=== PATIENT | male | born 1995 | race Caucasian/White ===

== ENCOUNTER 2020-03-06 16:10 | Inpatient (IN) ==
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
[2020-03-06 17:15] LABS: Basophils # (auto) 0.02 K/uL (0-0.2); Basophils % (auto) 0.3 %; Eosinophils # (auto) 0.08 K/uL (0-0.5); Eosinophils % (auto) 1.1 %; Hematocrit (blood only) 41.3 % (42-52); Hemoglobin 14.5 g/dL (14.0-18.0); Immature Granulocytes # (auto) 0.01 K/uL (0.00-0.02); Immature Granulocytes % (auto) 0.1 %; Lymphocytes # (auto) 1.63 K/uL (1.2-3.4); Lymphocytes % (auto) 22.9 %; Mean Corpuscular Hemoglobin 30.3 pg (25-34); Mean Corpuscular Hgb Conc 35.1 g/dL (32-36); Mean Corpuscular Volume 86.4 fL (80-100); Mean Platelet Volume 10.4 fL (7.4-10.4); Monocytes # (auto) 0.45 K/uL (0.11-0.59); Monocytes % (auto) 6.3 %; Neutrophils # (auto) 4.93 K/uL (1.4-6.5); Neutrophils % (auto) 69.3 %; Platelet Count 399 K/uL (130-400); RDW Coefficient of Variation 13.6 % (11.5-14.5); RDW Standard Deviation 43.5 fL (36.4-46.3); Red Blood Count 4.78 M/uL (4.7-6.1); White Blood Count 7.12 K/uL (4.8-10.8)
[2020-03-06 17:39] LABS: Alanine Aminotransferase 18 U/L (12-78); Albumin Level 4.6 gm/dl (3.4-5.0); Aspartate Aminotransferase 18 U/L (15-37); BUN Creatinine Ratio 9.9 (10-20); Blood Urea Nitrogen 11 mg/dl (7-18); Calcium 9.3 mg/dl (8.5-10.1); Carbon Dioxide 26 mmol/L (21-32); Chloride 110 mmol/L (98-107); Est GFR (African American) 101.9; Glucose 98 mg/dl (70-99); Potassium 3.5 mmol/L (3.5-5.1); Sodium 142 mmol/L (136-145)
[2020-03-06 17:47] LABS: Acetaminophen < 2 ug/ml (10-30); Salicylate < 1.7 mg/dl (2.8-20)
[2020-03-06 17:50] LABS: Albumin Globulin Ratio 1.4 (0.9-2); Alkaline Phosphatase 63 U/L (45-117); Globulin 3.3 gm/dl (2.5-4.0); Total Protein 7.9 gm/dl (6.4-8.2)
[2020-03-06 18:58] LABS: Appearance Urine Clear (Clear); Bilirubin Urine Negative (Negative); Blood Urine Negative (Negative); Color Urine Yellow; Glucose Urine UA Negative (Negative); Ketones Urine 1+ (Negative); Leukocyte Esterase Urine Negative (Negative); Nitrite Urine Negative (Negative); Protein Urine Negative (Negative); Specific Gravity Urine 1.022 (1.000-1.030); Urobilinogen Urine Negative (Negative); pH Urine 5.5 (4.5-7.5)
[2020-03-06 19:07] LABS: Amphetamines+Metham, Urine Neg (Neg); Barbiturates, Urine Neg (Neg); Benzodiazepine, Urine Neg (Neg); Cocaine, Urine Neg (Neg); MDMA (Ecstacy), Urine Neg (Neg); Methadone, Urine Neg (Neg); Opiate, Urine Neg (Neg); Phencyclidine, Urine Neg (Neg)
[2020-03-06] MEDS ORDERED: LORazepam 1 MG TAB SL STA (21:31)
[2020-03-06] MEDS ORDERED: haloperidoL 5 MG TAB PO STA (22:51)
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
[2020-03-06 23:17] VITALS: O2SAT 99
[2020-03-07] MEDS ORDERED: LORazepam 1 MG TAB SL STA (00:49)
[2020-03-07] MEDS ORDERED: MAGNESIUM HYDROXIDE SUSP 30 ML UDC PO PRN (00:50)
[2020-03-07] MEDS ORDERED: SODIUM CHLORIDE 0.65% NA SOLN 45 ML (OCEAN) PRN (00:50)
[2020-03-07] MEDS ORDERED: BISMUTH SUBSALICYLATE LIQD 236 ML PO PRN (00:50)
[2020-03-07] MEDS ORDERED: ACETAMINOPHEN 325 MG TAB PO PRN (00:50)
[2020-03-07] MEDS ORDERED: ALUMINUM/MAGNESIUM SUSP 30 ML UDC PO PRN (00:50)
[2020-03-07] MEDS ORDERED: cloNIDine HCL 0.1 MG TAB PO ONE (11:38)
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
[2020-03-07] MEDS ORDERED: PALIPERIDONE 3 MG TABCR PO ONE (14:00)
[2020-03-07] MEDS: lamoTRIgine 25 MG TAB PO SCH (14:12)
[2020-03-07] MEDS ORDERED: DOXEPIN HCL 25 MG CAPSULE PO PRN (21:00)
[2020-03-08] MEDS: haloperidoL 5 MG TAB PO PRN (06:55)
[2020-03-08] MEDS: lamoTRIgine 25 MG TAB PO SCH (07:37)
[2020-03-08] MEDS: LORazepam 1 MG TAB PO PRN (07:50)
[2020-03-08] MEDS ORDERED: PALIPERIDONE 3 MG TABCR PO SCH (09:00)
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
[2020-03-08] MEDS: LORazepam 1 MG TAB PO SCH (20:58)
[2020-03-08] MEDS: haloperidoL 5 MG TAB PO SCH (21:01)
[2020-03-09 08:29] LABS: Marijuana Quant, GCMS Urine 3200 ng/mL (<5)
[2020-03-09] MEDS ORDERED: PALIPERIDONE 3 MG TABCR PO SCH (09:00)
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
[2020-03-09] MEDS: PALIPERIDONE 3 MG TABCR PO SCH (10:54)
[2020-03-09] MEDS: lamoTRIgine 25 MG TAB PO SCH (10:54)
[2020-03-09] MEDS: LORazepam 1 MG TAB PO SCH ×2 (11:02→21:09)
[2020-03-09] MEDS: LORazepam 1 MG TAB PO PRN (16:53)
[2020-03-09] MEDS: haloperidoL 5 MG TAB PO SCH (21:09)
[2020-03-10] MEDS: lamoTRIgine 25 MG TAB PO SCH (08:41)
[2020-03-10] MEDS ORDERED: LORazepam 2 MG/ML VIAL (IM USE) IM PRN (10:12)
[2020-03-10] MEDS ORDERED: HALOPERIDOL LACTATE 5 MG/ML 1 ML VIAL IM PRN (10:12)
[2020-03-10] MEDS: LORazepam 1 MG TAB PO PRN (10:15)
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
[2020-03-10] MEDS: PALIPERIDONE 3 MG TABCR PO SCH (14:27)
--- NOTE | 2020-03-10 14:48 | XRay Report ---
XR hand RT min 3V routine CLINICAL HISTORY: needs portable, 1 view if needed, r/o boxer fx. Right hand pain. COMPARISON STUDY: None. FINDINGS: Mild soft tissue swelling at the dorsum of the MCP joints. No fracture or dislocation withi n the right hand. Specifically, the metacarpals appear intact. No radiopaque foreign bodies. IMPRESSION: No fracture or dislocation within the right hand. ACT 112: Negative or not required by law. Electronically signed by: Cornel Quintana M.D. 03/10/2020 2:47 PM
[2020-03-10] MEDS: LORazepam 1 MG TAB PO SCH (21:19)
[2020-03-10] MEDS: haloperidoL 5 MG TAB PO SCH (21:19)
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
[2020-03-11] MEDS: PALIPERIDONE 3 MG TABCR PO SCH (11:26)
[2020-03-11] MEDS: lamoTRIgine 25 MG TAB PO SCH (11:26)
[2020-03-11] MEDS ORDERED: HALOPERIDOL LACTATE 5 MG/ML 1 ML VIAL IM PRN (11:56)
[2020-03-11] MEDS: LORazepam 1 MG TAB PO PRN (13:45)
[2020-03-11] MEDS: haloperidoL 5 MG TAB PO PRN (13:45)
[2020-03-11] MEDS: LORazepam 1 MG TAB PO SCH (21:06)
[2020-03-11] MEDS: haloperidoL 5 MG TAB PO SCH (21:07)
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
[2020-03-12 08:59] LABS: Glucose Fasting 91 mg/dl (70-99)
[2020-03-12 09:07] LABS: Chol HDL Ratio 2; Cholesterol 93 mg/dl (0-200); HDL Cholesterol 41 mg/dl; LDL Cholesterol Calculated 42 mg/dl; Triglycerides 50 mg/dl (0-150); VLDL Cholesterol 10 mg/dl
[2020-03-12] MEDS ORDERED: haloperidoL 5 MG TAB PO PRN (12:07)
[2020-03-12] MEDS: lamoTRIgine 25 MG TAB PO SCH (12:36)
[2020-03-12] MEDS: PALIPERIDONE 3 MG TABCR PO SCH (13:10)
[2020-03-12] MEDS: hydrOXYzine HCl 25 MG TAB PO PRN (17:45)
[2020-03-12] MEDS: haloperidoL 5 MG TAB PO PRN (17:45)
[2020-03-12] MEDS: LORazepam 1 MG TAB PO SCH (20:44)
--- NOTE | 2020-03-13 10:45 | Psychiatric Progress Note ---
Date of Service March 13, 2020 Impression / Recommendations Impression This 24-year-old man with a history of schizoaffective disorder, bipolar type, cannabis abuse, and intermittent explosive disorder who presented with delusions that he was being drugged and raped in his sleep or sexually harassed. Available records indicate that the patient may cycle rapidly between angeli (with grandiose beliefs, flight of ideas, and expansive mood) and depression with feelings of hopelessness, helplessness, worthlessness, insomnia, crying spells, anhedonia, anxious distress, and depressed mood. Little is known about his past psychiatric history, and he is reporting significant substance use triggering current psychotic symptoms. He and his girlfriend report he has been using large quantities of "high THC" marijuana. Nonadherence with treatment is also an issue in this case. A recent outpatient progress note indicated that he was refusing psychiatric medications, other than lamotrigine, which was prescribed 25 mg a day. He was started on Invega with a plan to transition to an WARD. Since admission he was taking PO meds as prescribed but became acutely agitated following 303 commitment hearing breaking a window (charges to be filed), now has meds over objection and Haldol has been added. He is poorly engaged with treatment, lacks insight, and continues to demonstrate paranoia and poor behavioral control, despite numerous attempts to convince staff otherwise. He is irritable and demanding in conversation, and has yet to be able to articulate a clear or appropriate discharge plan. (1) Psychosis: 03/07/20 -The patient has been admitted to the [facility] inpatient [facility] unit where he will be actively monitored and treated. When under better behavioral control he will be encouraged to participate in group and recreational therapies. We will also recommend family involvement with his girlfriend. -The patient's dose of lamotrigine most of been increased from 25 mg a day to 50 mg a day by his outpatient provider, but the patient had not yet started the higher dose. We will increase the patient's dose of lamotrigine to 50 mg daily. -The patient has been offered and has agreed to take paliperidone (Invega) immediate release by mouth. We will start at 3 mg a day and titrate as indicated and tolerated. Given the adherence issue, we will also talked the patient about the option of converting to Invega Sustenna. -Patient's report is that he had carried a diagnosis of ADHD in the past. It is not entirely clear if the symptoms that he describes such as difficulty concentrating, focusing, and avoiding distraction are a feature of his bipolar disorder symptoms (schizoaffective disorder bipolar type) or if this is an independent diagnosis. Given his history of substance misuse, as well as his history of difficulty regulating his mood, we would be reluctant to prescribe a stimulant medication such as amphetamine salts or methylphenidate. He notes that he has not taken Strattera, and this might be an option once he has stabilized psychiatrically if the above referenced symptoms persist. -Within the context of the patient's reported depression, he describes significant anxious distress. He appears to be seeking a benzodiazepine, but accepted my explanation that we would not suggest regular use of a benzodiazepine in his case, nor would we be likely to feel comfortable disch arging him on a benzodiazepine, given his history of heavy use of abusable drugs, such as marijuana. Reviewed 03/08/20. Will add standing dose of Haldol at hs and Ativan BID until Invega more therapeutic. Agree that would benefit from WARD. 03/09/20--d/c am Ativan, shift Invega to lunch time. Still restless at night but can likely d/c Haldol soon in favor of titration of Invega if needed. 03/10/20--303 commitment. Note that refusing PO meds for episode of agitation. If continues to refuse PO meds, based on patient's own aggressive and unpredictable behavior due to paranoia due to his bipolar disorder it is my medical opinion that he should receive meds over objection as without mood stabilizing effects of the antipsychotic he remains at significant risk of , serious harm to self or others in the next 30 days. --acute agitation today involving destruction of property. 03/11 -continue paliperidone 6 mg daily, and transition to Invega Sustenna if effective. Continue haloperidol 5 mg at bedtime in the interim for acute symptom control/agitation. Agree with medications over objection, given his history of psychotic disorder, intermittent refusal to take medications, acute agitation which puts both himself and other patients/staff at risk, poor insight and judgment, and the need to adequately control symptoms so that he can participate in treatment and discharge planning. Will order haloperidol IM for refusal of p.o. medications. -Continue use of safe room as patient broke the window in the MITCH room. He indicated that his behavior was justified, as he felt staff lied to him and disrespected him, and was informed of expectations for behavior in the hospital, including that he not threaten or assault staff, or cause property damage, and that if he does, charges may be pressed. -Encourage patient to attend groups and participate in treatment, he indicates he is going to refuse. -He signed a release for his girlfriend today, and we will get collateral information and schedule a family meeting. 03/12 -contacted Rachel Landis at [facility] to coordinate care (left message), have requested records from [facility] and multiple inpatient stays at the [facility], but have not yet received them. Records indicate numerous previous diagnoses, including schizoaffective disorder, bipolar disorder, and intermittent explosive disorder. Differential includes substance-induced psychosis. -Consider a 304 IOC due to nonadherence with treatment and risk of harm to both himself and others of untreated. -Continue paliperidone and increase to 9 mg daily, change haloperidol to as needed; would like to transition to an WARD, but would like to establish efficacy first. -FLP and glucose checked for monitoring on an atypical antipsychotic, all values within normal limits. -Coordinate with CYS, given concerns for safety of patient's girlfriend and child, and his assertion that he is returning to live with them at discharge. 03/13 - Continue paliperidone, recently increased to 9mg daily. Exploring efficacy with recommendation to convert to an WARD. - Pt is rather focused on discharge, but is unable to verbalize a clear or consistent plan for housing or aftercare services. Pt is ambivalent about staying with his girlfriend, moving into his own apartment, or living with his mother in [place] - with reports this decision will now be based on a paternity test he is requesting. - Pt states he is no longer delusional and that he should be discharge today - however, he simultaneously is now convinced that his girlfriend is cheating on him and that the baby may not be his - offering no other possible explanation for his girlfriend's behavior. (2) Cannabis abuse with cannabis-induced disorder: 03/12 -cannabis induced psychosis. Both patient and girlfriend report he has been smoking very large amounts of high potency marijuana, and that paranoia has occurred in this context. He does have a previous history of mental health treatment but no details of that are known at this time. We have requested records from the [facility] but have not yet received them. Patient has poor insight, and girlfriend reported he has a medical marijuana card from Dr. Gregory from [facility], so called him to inform him of hospitalization for substance-induced psychosis related to cannabis use. Halluc inogens and centrally acting medications that can cause psychosis or addiction are contraindicated for him. Drug screen + THC, with a level of 3200. (3) Suicidal thoughts: 03/07/20 -The patient makes statements that indicate that he is actively suicidal with suicidal intent, although he also reports that he will not make any self-harm attempts while in the hospital. -He will continue to be monitored closely and placed on suicide precautions. He is also been placed in our close observation room across from the nursing station. -The patient's complaint today is of depression, although the patient's outpatient record suggests possible rapid cycling and so the plan will not be to add an antidepressant medication at this time. Of note is the patient's report that, in the past, he has responded favorably to "Prozac." Reviewed 03/08/20. Not appropriate for antidepressant retrial at this time as could be activating. 03/11 -patient is denying SI. 03/12 -past records indicate he has been activated on antidepressants in the past, so would not recommend a retrial due to the high risk of worsening his symptoms/mood instability. (4) Intermittent explosive disorder: 03/12 - Historical diagnosis from therapist, pt reports h/o violence but is a limited historian, continue to gather information. Girlfriend indicates a history of violence, and states there is a firearm which she plans to remove from the residence prior to discharge. - Have requested records from previous hospitalizations at [place], have not yet received them. - If the atypical antipsychotic does not decrease episodes of agitation/violence, consider trial of Depakote. 03/13 - Pt continues to be irritable and demanding with a significant focus on discharge; however, no continued demonstration of acute agitation. Inventory Assets Strengths: Intelligent. Motivated to treatment. Adherent with outpatient appointments. Supportive girlfriend. Needs: Adherence to antipsychotic medications and mood stabilizers at an adequate dose. Resolution of psychosis. Resolution of disorganized and dangerous behaviors. Resolution of active suicidal thoughts. Risk Factors Assessment Male: Yes : Yes Do You Have Access To A Gun?: Yes (Patient says that his gun is in a locked box. ) Health Problems: No Mental Health Diagnoses: Yes Substance Use Disorders: Yes Previous Attempt: No (This is by the patient's report. Collateral information is required.) Family History of Suicide: No Previous Psychiatric Hospitalization: Yes Hopelessness: Yes Smoker: No Protective Factors Assessment Episcopal Beliefs: No (The patient reports that he is "ethnically Mandaeism," but is not adherent.) : No Responsible for Young Children: No (The patient's girlfriend gave to a son 10 days ago. CYS involved.) Employed: No Stable Relationships: Yes Supportive Family: No Good Rapport with Provider: Yes Absence of Any Risk Factors Above: No Interval History Identifying Information JEWEL LONGORIA is a 24-year-old man who currently lives locally with his girlfriend and 10-day old son. He has a history of schizoaffective disorder, bipolar type. Mr. Longoria was admitted on 03/07/20 00:50 on a 302 involuntary commitment because of grossly disorganized behavior within the context of paranoid delusions, and SI. He is on a 303 as of 03/10/20. Chief Complaint "Listen, I'm not delusional or having any of those thoughts anymore. I'm ready to go, you need to let me go." Review of Systems Notes Constitutional: reports fatigue and feeling restless in this setting Cardiovascular: denied Respiratory: denied Gastrointestinal: denied Neurological: denied Psychiatric: denies symptoms other than stated above Total of at least 10 systems reviewed, pertinent positives as above and in HPI. Sleep Information Total Hours of Sleep: 6 Sleep Comments: pt on dq-15 minute checks Meal Information Percent Meal Consumed - Breakfast: 0 Percent Meal Consumed - Lunch: 10 Percent Meal Consumed - Dinner: 100 Nutrition Comment: Documented from meal record Subjective Subjective Patient was seen & assessed and interval progress reviewed with nursing and social work. Staff report the patient had been somewhat irritable throughout the day yesterday. He had been reporting resolution of delusions, but observations from and conversations with staff suggest continued paranoia and delusional thought content. Concerns regarding patient's behavior, especially with a at home, were expressed to CYS. Pt was seen today to assess progress since admission. Pt reports "Listen, I'm not delusional or arteaga ving any of those thoughts anymore. I'm ready to go, you need to let me go." Pt states "I'm not having those f*cking delusions that I'm being f*cking raped or anything like that." Pt states "but I know my girlfriend is f*cking cheating on me." Pt provides a very disorganized explanation of the "blue wall" in a SnapChat his girlfriend received matches the blue wall in our friends' house. He states he knows she was texting this individual in the delivery room and states he is now not sure that the is even his. Pt was asked if there was any other explanation for these behaviors, and denied there was any other excuse. Pt continued with this conversation and reports that he is convinced that his girlfriend knew he was catching onto their affair and that she has been "gaslighting me" and made up lies to get me to the hospital and out of the way. Pt states he is not convinced that the baby is his and he is now going to demand a paternity test. Pt reports numerous, loosely developed discharge plans. He discusses living with his mother in [place], getting an apartment with his SSI, or staying with his girlfriend. He seems ambivalent about need for aftercare services, saying "if I miss therapy appointments who cares? I don't." Pt then becomes rather demanding "you guys need to start calling for housing, set me up with something, it's not that hard. I need you to think about getting me out of here in a few days, not a few weeks." Pt was informed that he will be meeting with a social sciences department chair to discuss this further, but was strongly encouraged to begin making these phone calls in the meantime if he is motivated for discharge. Pt did call his mother between our two conversations today and stated she is not willing to have him stay with her. Pt then states "I'll talk to however may people you need me to, I'll go through endless interrogations, but you need to let me out - like tomorrow." Pt was encouraged to focus on treatment goals and discharge planning - encouraged to make phone calls to determine his housing options. Pt continued to be irritable and demanding, but did respond to attempts to redirect him toward discharge goals and was later observed to be making phone calls. Physical Exam Psychiatric Orientation: alert, oriented x 3 and + guarded (uncooperative, demanding, argumentative at times) Apperance: appropriately dressed (casually, in jeans and a sweatshirt) and + disheveled (poorly groomed) Curly hair is unclean, messy, standing on end in places. Eye Contact: + fair eye contact (eyes darting around room at times, distracted) Motor Behavior: steady gait and station and + psychomotor agitation (restless, distracted) Speech: normal rate/rhythm/volume of speech Affect: + anxious affect and + irritable affect Mood: + irritable mood Thought Process: + circumstantial thought process and + perseveration; + thought process not linear or logical Thought Content: + preoccupation (very focused on discharge), + paranoid and + delusions Suicidal Thoughts: denies suicidal thoughts Homicidal Thoughts: denies homicidal thoughts Hallucinations: no auditory hallucinations and no visual hallucinations Cognition: language grossly intact; + attention not intact (distracted, poor attention) Insight: + impaired insight Judgement: + impaired judgement Vital Signs (Past 24 Hours) Last Vital Signs Temp 36.4 C L 03/13/20 06:00 Pulse 86 03/13/20 06:00 Resp 16 03/13/20 06:00 BP 100/69 03/13/20 06:00 Pulse Ox 99 03/06/20 23:16 Results & Data ([facility]) Current Inpatient Medications Current Inpatient Medications: Current Inpatient Medications Acetaminophen (Acetaminophen 325 Mg Tab) 650 mg PO Q4H PRN PRN Reason: Headache or Minor Fever Stop: 04/06/20 00:49 Al Hydrox/Mg Hydrox/Simethicone (Aluminum/Magnesium Susp 30 Ml Udc) 30 ml PO Q4H PRN PRN Reason: GI Upset Stop: 04/06/20 00:49 Benztropine Mesylate (Benztropine Mesylate 1 Mg Tab) 1 mg PO BID PRN PRN Reason: Muscle Spasm Stop: 04/07/20 11:48 Bismuth Subsalicylate (Bismuth Subsalicylate Liqd 236 Ml) 15 ml PO PRN PRN PRN Reason: Loose Stool Stop: 04/06/20 00:49 Haloperidol (Haloperidol 5 Mg Tab) 5 mg PO Q4H PRN PRN Reason: Agitation Stop: 04/06/20 00:54 Last Admin: 03/12/20 17:45 Dose: 5 mg Documented by: Haloperidol (Haloperidol 5 Mg Tab) 5 mg PO Q6H PRN PRN Reason: psychosis Stop: 04/11/20 12:14 Haloperidol Lactate (Haloperidol Lactate 5 Mg/Ml 1 Ml Vial) 5 mg IM Q4 PRN PRN Reason: Anxiety/Agitation Stop: 04/09/20 10:11 Haloperidol Lactate (Haloperidol Lactate 5 Mg/Ml 1 Ml Vial) 5 mg IM Q6H PRN PRN Reason: refusal of po antipsychotics Stop: 04/10/20 11:55 Hydroxyzine HCl (Hydroxyzine Hcl 25 Mg Tab) 50 mg PO HSZ PRN PRN Reason: Insomnia Stop: 04/06/20 00:49 Hydroxyzine HCl (Hydroxyzine Hcl 25 Mg Tab) 25 mg PO Q4H PRN PRN Reason: Anxiety Stop: 04/06/20 00:49 Last Admin: 03/12/20 17:45 Dose: 25 mg Documented by: Lamotrigine (Lamotrigine 25 Mg Tab) 50 mg PO QAM [facility] Stop: 04/06/20 13:29 Last Admin: 03/12/20 12:36 Dose: 50 mg Documented by: Lorazepam (Lorazepam 1 Mg Tab) 1 mg PO Q4H PRN PRN Reason: Agitation Stop: 04/06/20 00:54 Last Admin: 03/11/20 13:45 Dose: 1 mg Documented by: Lorazepam (Lorazepam 1 Mg Tab) 1 mg PO HS FABIÁN Stop: 04/08/20 21:59 Last Admin: 03/12/20 20:44 Dose: 1 mg Documented by: Lorazepam (Lorazepam 2 Mg/Ml Vial (Im Use)) 2 mg IM Q6 PRN PRN Reason: Anxiety/Agitation Stop: 04/09/20 10:11 Magnesium Hydroxide (Magnesium Hydroxide Susp 30 Ml Udc) 30 ml PO DAILY PRN PRN Reason: Constipation Stop: 04/06/20 00:49 Paliperidone (Paliperidone 3 Mg Tabcr) 9 mg PO DAILY@1200 FABIÁN Stop: 04/12/20 11:59 Sodium Chloride (Sodium Chloride 0.65% Na Soln 45 Ml ([place])) 1 - 2 sprays NA PRN PRN PRN Reason: Nasal Dryness/Congestion Stop: 04/06/20 00:49 Mental Health & Subst Abuse Tx Psychiatrist Name of Psychiatrist: Ozzie Gutierrez Psychiatrist's Date of Appointment with Psychiatrist: 03/25/20 Time of Appointment with Psychiatrist: 2:20 p.m. Psychiatric Appointment Comment: In person - [id number] [facility] Therapist Name of Therapist: Syed Therapist's Date of Therapist Appointment: 03/07/20 Pss Delivery Professional Name of Pss Delivery Professional: [facility] Phone Number for Pss Delivery Professional: [phone] Post Discharge Appointments Primary Care Physician Name Of Family Doctor: Milli Stanford Primary Care Provider Appointment Comment: Manju Wilson, [place] [id number] Contact Information Discharge Discharge Address: [address], [place] [address]
[2020-03-13] MEDS: PALIPERIDONE 3 MG TABCR PO SCH (11:41)
[2020-03-13] MEDS: lamoTRIgine 25 MG TAB PO SCH (11:41)
[2020-03-13] MEDS: haloperidoL 5 MG TAB PO PRN ×2 (12:20→20:56)
[2020-03-13] MEDS: LORazepam 1 MG TAB PO PRN (12:20)
[2020-03-13] MEDS: LORazepam 1 MG TAB PO SCH (20:55)
[2020-03-14] MEDS: lamoTRIgine 25 MG TAB PO SCH (10:37)
[2020-03-14] MEDS: PALIPERIDONE 3 MG TABCR PO SCH (10:37)
[2020-03-14] MEDS ORDERED: PALIPERIDONE PALMITATE 234 MG/1.5 ML SYR IM ONE (15:18)
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
[2020-03-14] MEDS: LORazepam 1 MG TAB PO SCH (21:37)
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
[2020-03-15] MEDS: lamoTRIgine 25 MG TAB PO SCH (13:06)
[2020-03-15] MEDS: hydrOXYzine HCl 25 MG TAB PO PRN (13:39)
[2020-03-15] MEDS: LORazepam 1 MG TAB PO PRN (18:49)
[2020-03-15] MEDS: haloperidoL 5 MG TAB PO PRN (18:50)
[2020-03-15] MEDS: BENZTROPINE MESYLATE 1 MG TAB PO PRN (18:50)
[2020-03-15] MEDS: LORazepam 1 MG TAB PO SCH (21:17)
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
[2020-03-16] MEDS: lamoTRIgine 25 MG TAB PO SCH (12:34)
[2020-03-16] MEDS: BENZTROPINE MESYLATE 1 MG TAB PO PRN (12:38)
[2020-03-16] MEDS: LORazepam 1 MG TAB PO PRN ×2 (12:38→17:44)
[2020-03-16] MEDS: haloperidoL 5 MG TAB PO PRN ×3 (12:39→22:10)
[2020-03-16] MEDS: hydrOXYzine HCl 25 MG TAB PO PRN ×2 (13:41→22:10)
[2020-03-16] MEDS: LORazepam 1 MG TAB PO SCH (20:36)
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
[2020-03-17] MEDS: lamoTRIgine 25 MG TAB PO SCH (13:32)
[2020-03-17] MEDS: LORazepam 1 MG TAB PO SCH (20:19)
[2020-03-17] MEDS: haloperidoL 5 MG TAB PO PRN (20:20)
[2020-03-17] MEDS: hydrOXYzine HCl 25 MG TAB PO PRN (21:58)
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
[2020-03-18] MEDS: lamoTRIgine 25 MG TAB PO SCH (12:10)
[2020-03-18] MEDS: LORazepam 1 MG TAB PO PRN (15:50)
[2020-03-18] MEDS: haloperidoL 5 MG TAB PO PRN (15:51)
[2020-03-18] MEDS: LORazepam 1 MG TAB PO SCH (21:14)
[2020-03-19 06:36] VITALS: BP 109/74; TEMP 97.7
[2020-03-19] MEDS: lamoTRIgine 25 MG TAB PO SCH (09:58)
[2020-03-19] MEDS ORDERED: PALIPERIDONE PALMITATE 156 MG/ML SYR IM ONE (10:00)
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
[2020-03-19 12:05] VITALS: PULSE 86
[2020-03-22] MEDS ORDERED: PALIPERIDONE PALMITATE 156 MG/ML SYR IM ONE (09:00)
== END 2020-03-19 12:25 | disposition home or self-care (01) | DRG 885 ==
LOC: ED 16:10 → 3S 03-07 00:50